=== PATIENT | female | born 1980 ===

== ENCOUNTER → 2023-10-11 | Day surgery (SDC) | payer OTHER ==
[~2023-10-11] MED LIST: ONDANSETRON HCL 2 MG/ML VIAL IV ONE; ONDANSETRON HCL 2 MG/ML VIAL ONE; POVIDONE-IODINE 118 ML BOTT TOP ONE
== END | disposition home or self-care (01) ==
LOC: ADM 10-05 12:00 → CIR.AMB 05:17
PROVIDERS: ATTEND Obstetrics & Gynecology
DX: N93.8 Other specified abnormal uterine and vaginal bleeding (principal); N84.0 Polyp of corpus uteri; Z20.822 Contact with and (suspected) exposure to COVID-19